=== PATIENT | female | born 1950 | race Caucasian/White ===

== ENCOUNTER 2016-06-13 14:59 | Outpatient (CLI) | payer MEDICARE, OTHER ==
[2016-06-13 16:30] LABS: BASOPHILS % 0.2 (0.0-1.5); EOSINOPHILS % 4.5 % (0.0-6.8); MEAN CORPUSCULAR HEMOGLOBIN 29.5 pg (28.0-34.0); MEAN CORPUSCULAR VOLUME 92.6 fl (80.0-100.0); MONOCYTES % 4.6 % (0.0-11.0); NEUTROPHILS # 2.2 # k/uL (1.4-7.7)
[2016-06-13 17:04] LABS: eGFR (African) > 60; eGFR (Non-African) > 60
== END 2016-06-13 15:00 ==
LOC: NEPHRO 14:59
PROVIDERS: ATTEND Internal Medicine Nephrology
DX: E66.9 Obesity, unspecified (principal); E87.6 Hypokalemia; R60.9 Edema, unspecified
CPT/HCPCS: 36415; 80053; 85025; G0463

== ENCOUNTER 2016-08-01 14:35 | Outpatient (CLI) | payer MEDICARE, OTHER | END 2016-08-01 14:36 | LOC: NEPHRO 14:35 | PROVIDERS: ATTEND Internal Medicine Nephrology | DX: R59.1 Generalized enlarged lymph nodes (principal) | CPT/HCPCS: G0463 ==

== ENCOUNTER 2016-10-24 15:38 | Outpatient (CLI) | payer MEDICARE, OTHER | END 2016-10-24 15:40 | LOC: NEPHRO 15:38 | PROVIDERS: ATTEND Internal Medicine Nephrology | DX: E87.6 Hypokalemia (principal); I89.0 Lymphedema, not elsewhere classified; R60.9 Edema, unspecified | CPT/HCPCS: G0463 ==

== ENCOUNTER 2017-07-10 14:30 | Outpatient (CLI) | payer MEDICARE, OTHER | END 2017-07-10 14:32 | LOC: NEPHRO 14:30 | PROVIDERS: ATTEND Internal Medicine Nephrology | DX: R60.9 Edema, unspecified (principal) | CPT/HCPCS: G0463 ==

== ENCOUNTER 2018-01-15 13:40 | Outpatient (CLI) | payer MEDICARE, OTHER | END 2018-01-15 13:42 | LOC: NEPHRO 13:40 | PROVIDERS: ATTEND Internal Medicine Nephrology | DX: E66.01 Morbid (severe) obesity due to excess calories (principal); I89.0 Lymphedema, not elsewhere classified; E11.9 Type 2 diabetes mellitus without complications; E87.6 Hypokalemia; Z79.84 Long term (current) use of oral hypoglycemic drugs | CPT/HCPCS: G0463 ==

== ENCOUNTER 2018-07-16 13:48 | Outpatient (CLI) | payer MEDICARE, OTHER | END 2018-07-16 13:50 | LOC: NEPHRO 13:48 | PROVIDERS: ATTEND Internal Medicine Nephrology | DX: E66.01 Morbid (severe) obesity due to excess calories (principal); R60.0 Localized edema; E11.9 Type 2 diabetes mellitus without complications; E87.6 Hypokalemia; Z79.899 Other long term (current) drug therapy; Z79.84 Long term (current) use of oral hypoglycemic drugs | CPT/HCPCS: G0463 ==